=== PATIENT | male | born 1950 | race Caucasian/White ===

== ENCOUNTER → 2024-01-22 10:58 | Outpatient (REF) | payer MEDICARE, SELFPAY ==
[2024-01-22 16:08] LABS: % Basophils 0.7 % (0-2); % Eosinophils 2.2 % (0-6); % Immature Granulocytes 0.8 % (0-0.5); % Lymphocytes 24.7 % (20.5-51.1); % Monocytes 10.9 % (1.7-9.3); % Neutrophils 60.7 % (42.2-75.2); Absolute Basophils 0.1 10^3/uL (0-0.2); Absolute Eosinophils 0.2 10^3/uL (0-0.7); Absolute Immature Granulocytes 0.1 10^3/uL (0-0.05); Absolute Lymphocytes 1.8 10^3/uL (1.2-3.4); Absolute Monocytes 0.8 10^3/uL (0.1-0.6); Absolute Neutrophils 4.4 10^3/uL (1.4-6.5); Hematocrit 40.2 % (39.0-52.0); Hemoglobin 13.3 g/dL (13.0-18.0); Mean Corp Hgb Conc. 33.1 g/dL (33.0-37.0); Mean Corpuscular Hgb 29.5 pg (27.0-31.0); Mean Corpuscular Volume 89.1 fL (80.0-94.0); Mean Platelet Volume 9.7 fL (7.4-10.4); Nucleated Red Blood Cells % 0 % (-); Platelet Count 237 10^3/uL (130-400); Red Blood Cell Count 4.51 10^6/uL (4.70-6.10); Red Cell Dist. Width 13.2 % (11.5-14.5); White Blood Cell Count 7.3 10^3/uL (4.8-10.8)
[2024-01-22 16:37] LABS: ALT (SGPT) 17 U/L (0-50); AST (SGOT) 24 U/L (17-59); Albumin 4.2 g/dl (3.5-5.0); Alkaline Phosphatase 52 U/L (38-126); Blood Urea Nitrogen 30 mg/dl (9-20); Calcium 10.5 mg/dl (8.4-10.2); Carbon Dioxide 20 mmol/L (22-30); Chloride 110 mmol/L (98-107); Glucose 96 mg/dl (70-99); Potassium 4.7 mmol/L (3.5-5.1); Sodium 142 mmol/L (135-145); Total Bilirubin 0.5 mg/dl (0.2-1.3); Total Protein 6.6 g/dl (6.3-8.2); eGFR 44.38
[2024-01-22 17:03] LABS: TSH 2.06 uIU/ml (0.47-4.68)
[2024-01-24 19:09] LABS: Endomysial IgA Antibody Titer <1:10 (<1:10)
== END ==
LOC: HWLAB 10:58
PROVIDERS: ATTENDING PHYSICIAN Nurse Practitioner
DX: R53.83 Other fatigue (principal); K59.09 Other constipation
CPT/HCPCS: 36415; 80053; 82784; 83516; 84443; 85025; 86231

== ENCOUNTER → 2024-01-27 07:36 | Outpatient (REF) | payer MEDICARE, SELFPAY | LOC: HWRAD 07:36 | PROVIDERS: ATTENDING PHYSICIAN Nurse Practitioner | DX: R06.02 Shortness of breath (principal); R10.32 Left lower quadrant pain; Z87.19 Personal history of other diseases of the digestive system | CPT/HCPCS: 74177; Q9967 ==

== ENCOUNTER → 2024-02-12 06:33 | Outpatient (REF) | payer MEDICARE, SELFPAY ==
[2024-02-12 11:15] LABS: ALT (SGPT) 19 U/L (0-50); AST (SGOT) 27 U/L (17-59); Albumin 4.9 g/dl (3.5-5.0); Alkaline Phosphatase 54 U/L (38-126); Blood Urea Nitrogen 27 mg/dl (9-20); Calcium 10.6 mg/dl (8.4-10.2); Carbon Dioxide 24 mmol/L (22-30); Chloride 107 mmol/L (98-107); Glucose 95 mg/dl (70-99); HDL Cholesterol 49 mg/dl; LDL Cholesterol, Calculated 107 mg/dl; Sodium 143 mmol/L (135-145); Total Bilirubin 0.4 mg/dl (0.2-1.3); Total Cholesterol 180 mg/dl (50-199); Total Protein 7.3 g/dl (6.3-8.2); Triglyceride 120 mg/dl (10-149); Very Low Density Lipoprotein 24 mg/dl (0-30); eGFR 38.53
[2024-02-12 15:46] LABS: HIV Combo Negative (Negative)
[2024-02-14 09:07] LABS: Intact PTH 9.7 pg/ml (13.6-85.8)
[2024-02-15 00:05] LABS: Lead - Venous <2.0 ug/dL (<=4.9)
== END ==
LOC: MRI 3T 06:33
PROVIDERS: ATTENDING PHYSICIAN Physician Assistant Surgical; PRIMARYCARE PHYSICIAN Nurse Practitioner
DX: M54.12 Radiculopathy, cervical region (principal); Z00.00 Encounter for general adult medical examination without abnormal findings; N40.0 Benign prostatic hyperplasia without lower urinary tract symptoms; E78.5 Hyperlipidemia, unspecified; Z11.3 Encounter for screening for infections with a predominantly sexual mode of transmission; R10.32 Left lower quadrant pain
CPT/HCPCS: 36415; 72141; 80053; 80061; 83655; 83970; 87389; G0103

== ENCOUNTER → 2024-03-18 12:00 | Outpatient (REF) | payer MEDICARE, SELFPAY | LOC: DHSLP 12:00 | PROVIDERS: ATTENDING PHYSICIAN Internal Medicine; FAMILY PHYSICIAN Nurse Practitioner | DX: G47.33 Obstructive sleep apnea (adult) (pediatric) (principal) | CPT/HCPCS: 95806 ==

== ENCOUNTER → 2024-04-13 09:30 | Outpatient (REF) | payer MEDICARE, SELFPAY ==
[2024-04-13 12:18] LABS: % Basophils 0.8 % (0-2); % Eosinophils 1.7 % (0-6); % Immature Granulocytes 0.7 % (0-0.5); % Lymphocytes 24.2 % (20.5-51.1); % Monocytes 10.3 % (1.7-9.3); % Neutrophils 62.3 % (42.2-75.2); Absolute Basophils 0.1 10^3/uL (0-0.2); Absolute Eosinophils 0.1 10^3/uL (0-0.7); Absolute Immature Granulocytes 0.1 10^3/uL (0-0.05); Absolute Lymphocytes 1.7 10^3/uL (1.2-3.4); Absolute Monocytes 0.7 10^3/uL (0.1-0.6); Absolute Neutrophils 4.5 10^3/uL (1.4-6.5); Hematocrit 40.7 % (39.0-52.0); Hemoglobin 14.1 g/dL (13.0-18.0); Mean Corp Hgb Conc. 34.6 g/dL (33.0-37.0); Mean Corpuscular Hgb 30.3 pg (27.0-31.0); Mean Corpuscular Volume 87.5 fL (80.0-94.0); Mean Platelet Volume 9.7 fL (7.4-10.4); Nucleated Red Blood Cells % 0 % (-); Platelet Count 235 10^3/uL (130-400); Red Blood Cell Count 4.65 10^6/uL (4.70-6.10); White Blood Cell Count 7.2 10^3/uL (4.8-10.8)
[2024-04-13 14:51] LABS: Blood Urea Nitrogen 32 mg/dl (9-20); Calcium 10.2 mg/dl (8.4-10.2); Carbon Dioxide 24 mmol/L (22-30); Chloride 106 mmol/L (98-107); Glucose 109 mg/dl (70-99); Potassium 4.7 mmol/L (3.5-5.1); Sodium 138 mmol/L (135-145); eGFR 44.38
== END ==
LOC: HWLAB 09:30
PROVIDERS: ATTENDING PHYSICIAN Orthopaedic Surgery Orthopaedic Surgery of the Spine; FAMILY PHYSICIAN Nurse Practitioner
DX: M54.12 Radiculopathy, cervical region (principal); Z01.818 Encounter for other preprocedural examination
CPT/HCPCS: 36415; 80048; 85025; 93005

== ENCOUNTER 2024-05-05 06:23 | Inpatient (IN) | payer MEDICARE, SELFPAY ==
[2024-04-22 09:01] VITALS: BMI 37.7
[2024-04-22 11:21] LABS: ALT (SGPT) 20 U/L (0-50); AST (SGOT) 27 U/L (17-59); Albumin 4.5 g/dl (3.5-5.0); Alkaline Phosphatase 55 U/L (38-126); Blood Urea Nitrogen 21 mg/dl (9-20); Calcium 10.1 mg/dl (8.4-10.2); Carbon Dioxide 25 mmol/L (22-30); Chloride 105 mmol/L (98-107); Estimated Creatinine Clearance 51 ml/min; Glucose 96 mg/dl (70-99); Potassium 4.5 mmol/L (3.5-5.1); Sodium 138 mmol/L (135-145); Total Bilirubin 0.6 mg/dl (0.2-1.3); Total Protein 6.6 g/dl (6.3-8.2); eGFR 47.95
[2024-04-28 16:37] VITALS: BMI 37.7
[2024-05-05] VITALS (17 sets, daily range): BP systolic 130–168; BP diastolic 54–89; PULSE 92; O2SAT 97; BMI 39.6
[2024-05-05] MEDS: TYLENOL 1000 MG PO ×3 (07:23→17:57)
[2024-05-05] MEDS: SKELAXIN 800 MG PO (07:23)
[2024-05-05] MEDS: NORMOSOL-R/PLASMALYTE-A 1000 IV ×3 (07:24→22:23)
[2024-05-05] MEDS: CELEBREX 200 MG PO (07:24)
[2024-05-05] MEDS: DILAUDID 0.5 MG IV ×5 (10:33→12:50)
--- NOTE | 2024-05-05 11:09 | W.DS.TRANS ---
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
-
Discharge Instructions:
Discharge Diagnosis/Procedures C3-4-5-[address] Dumont 05/05/24
Diet As tolerated
Activity No strenuous activity
Additional Activity do not sit for prolonged period, frequent
ambulation w/ supervision
Driving Restrictions No driving
Instructions:
Stand-Alone Forms: Dumont Cervical D/C Inst.
Changes to Home Medications: Yes
Discharge Medications:
DC Medications w/original date entered in [facility]
budesonide-formoterol HFA 80 mcg-4.5 mcg/actuation aerosol inhaler (Symbicort) 2 puff inhalation R BID 09/29/19
fenofibrate nanocrystallized 145 mg tablet 145 mg PO DAILY 09/29/19
gabapentin 600 mg tablet 600 mg PO TID 09/29/19
amlodipine 5 mg tablet 5 mg PO HS 07/18/21
calcium polycarbophil 625 mg tablet (Fiber-Tabs) 1,250 mg PO DAILY 07/18/21
pravastatin 40 mg tablet 40 mg PO DAILY 07/18/21
tamsulosin 0.4 mg capsule 0.8 mg PO DAILY 07/18/21
albuterol sulfate 90 mcg/actuation aerosol inhaler 2 puff inhalation Q6H PRN SOB 04/28/24
multivitamin 1 tab PO DAILY 04/28/24
Saccharomyces boulardii 250 mg capsule (Florastor) 250 mg PO BID #1 cap 05/05/24
acetaminophen 650 mg tablet,extended release 650 - 1,300 mg (1 - 2 x 650 mg) PO QID #0 tabs 05/05/24
aspirin 81 mg tablet,delayed release (Adult Low Dose Aspirin) 81 mg PO BID Blood clot prevention/tx #1 tab 05/05/24
cephalexin 500 mg capsule 500 mg PO QID infection prevention #20 caps 05/05/24
dexamethasone 4 mg tablet 4 mg PO BID inflammation #6 tabs 05/05/24
docusate sodium 100 mg capsule 100 mg PO BID #0 caps 08/28/24
famotidine 20 mg tablet 20 mg PO HS GI prophylaxis #30 tabs 05/05/24
magnesium hydroxide 400 mg/5 mL oral suspension (Milk of Magnesia) 30 ml PO HS PRN Constipation #1 mL 05/05/24
ondansetron 4 mg disintegrating tablet 4 mg PO Q6H PRN n/v #20 tabs 05/05/24
oxycodone 5 mg tablet 5 mg PO Q4H PRN moderate-severe pain #20 tabs 05/05/24
sennosides 8.6 mg tablet (Senokot) 17.2 mg (2 x 8.6 mg) PO BID laxative #2 tabs 05/05/24
Home Medication Changes
aspirin 81 mg tablet,delayed release (Adult Low Dose Aspirin) 81 mg PO BID Blood clot prevention/tx #1 tab 05/05/24�
cephalexin 500 mg capsule 500 mg PO QID� infection prevention #20 caps 05/05/24�
dexamethasone 4 mg tablet 4 mg PO BID inflammation #6 tabs 05/05/24�
docusate sodium 100 mg capsule 100 mg PO BID #0 caps 05/05/24�
famotidine 20 mg tablet 20 mg PO HS GI prophylaxis #30 tabs 05/05/24�
ondansetron 4 mg disintegrating tablet 4 mg PO Q6H PRN n/v #20 tabs 05/05/24�
oxycodone 5 mg tablet 5 mg PO Q4H PRN moderate-severe pain #20 tabs 05/05/24�
Pending Results: No
[2024-05-05] MEDS: ULTRAM 50 MG PO ×2 (11:21→22:23)
[2024-05-05] MEDS: LYRICA 75 MG PO (11:21)
--- NOTE | 2024-05-05 14:40 | PTCARENOTE ---
Patient admitted from [facility] post cervical discectomy with fusion and hardware.The patient reports his pain at a 5 out of 10.He did just receive Dilaudid in [facility] right before he came to our floor.The anterior neck dressing is dry and
intact.Neurovascular assessment is within normal limits and ongoing.The patient is in his bed with the call fuentes in reach.His family is at the bedside.
[2024-05-05] MEDS: PRAVACHOL PO (16:33)
[2024-05-05] MEDS: TRICOR 48 MG PO (16:33)
[2024-05-05] MEDS: TYLENOL PO (16:34)
[2024-05-05] MEDS: FLOMAX PO (16:34)
[2024-05-05] MEDS: LYRICA PO (16:34)
[2024-05-05] MEDS: ANCEF 5 IV (16:41)
[2024-05-05] MEDS: SYMBICORT 80/4.5 MCG INHALER 2 PUFF INH (19:27)
[2024-05-05] MEDS: ROXICODONE 5 MG PO (20:17)
[2024-05-05] MEDS: COLACE 100 MG PO (20:17)
[2024-05-05] MEDS: SENOKOT 17.2 MG PO (20:17)
[2024-05-06] MEDS: TYLENOL 1000 MG PO ×3 (00:16→12:05)
[2024-05-06] MEDS: ANCEF 5 IV (00:16)
[2024-05-06] MEDS: LYRICA 75 MG PO (00:17)
--- NOTE | 2024-05-06 02:06 | W.PN.UPDATE ---
Update Note
Progress Note Update
0130 RN reports pt having some short pauses on tele (longest 1.05sec). Pt sleeping and asymptomatic during these pauses.
PT does have hx of MITCH and is due to get his new cpap next week. Declined use of cpap while in hospital.
Pauses likely due to MITCH.
Consider cardiology consult IF longer pauses of becomes symptomatic.
[2024-05-06 03:53] VITALS: BP 143/73
--- NOTE | 2024-05-06 04:21 | PTCARENOTE ---
pt has had several pauses ,00:57 was the longest at 1.05s, bp 151/72 hr 77, pt has been recently diagnosed with mild obstructive sleep apnea and he expresses he is to get a CPAP next week. I asked him if he would like one here he declined. he has
02 at 5-6 lpm and HOB elevated ,he does have hx dx COPD, 02? , he expressed Dr Dumont is aware . pt is asymptomatic and pauses occurring while sleeping, [employer]NA[employer] notified.
[2024-05-06 07:13] LABS: Hematocrit 38.2 % (39.0-52.0); Hemoglobin 13.4 g/dL (13.0-18.0)
[2024-05-06] MEDS: SYMBICORT 80/4.5 MCG INHALER 2 PUFF INH (07:15)
[2024-05-06 07:40] LABS: Blood Urea Nitrogen 26 mg/dl (9-20); Calcium 9.6 mg/dl (8.4-10.2); Carbon Dioxide 25 mmol/L (22-30); Chloride 103 mmol/L (98-107); Estimated Creatinine Clearance 49 ml/min; Glucose 103 mg/dl (70-99); Potassium 4.4 mmol/L (3.5-5.1); Sodium 141 mmol/L (135-145); eGFR 47.95
[2024-05-06 07:51] VITALS: BP 151/65
[2024-05-06] MEDS: SENOKOT 17.2 MG PO (08:43)
[2024-05-06] MEDS: TRICOR 48 MG PO (08:43)
[2024-05-06] MEDS: FLOMAX 0.8 MG PO (08:43)
[2024-05-06] MEDS: PRAVACHOL 40 MG PO (08:43)
[2024-05-06] MEDS: COLACE 100 MG PO (08:44)
--- NOTE | 2024-05-06 11:05 | W.PN.ORTHO ---
Today's Communication / Plan
-
d/c
Assessment
.
Distal Motor Intact: Yes
Dressing:
Clean, dry and intact.
Plan
.
Surgery / Date: C3--[address] Dumont 05/05/24
Activity:
Out of bed.
PT/OT
Discharge Plan: Home
Subjective
.
.:
Patient resting comfortably.
Vital Signs and Labs
.
Vital Signs and Labs:
Lab Results
05/06/24 06:58
05/06/24 06:58
Temp Pulse Resp BP Pulse Ox
97.9 F 68 19 151/65 98
05/06/24 07:51 05/06/24 07:51 05/06/24 07:51 05/06/24 07:51 05/06/24 07:51
Non-invasive Hgb result: 14.2
Physical Exam
-
HEENT: No pallor, cyanosis, or jaundice. Throat clear.
NECK: Supple. No JVD.
RESPIRATORY: Lungs clear to auscultation.
CVS: S1, S2 normal. RRR.� No murmur, rub or gallop.
ABDOMEN: Soft, non-tender. No distension. BS+/normal.
EXTREMITIES: strength equal, no calf pain with palpation
DIVISION DIRECTOR: AOx3. No focal deficits. 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
--- NOTE | 2024-05-06 11:16 | CM ---
Addendum entered by María Elena Brewster 05/06/24 13:14:
PCP: Alma Eden
Pharmacy: [facility] [facility] [address], [place]
Addendum entered by María Elena Brewster 05/06/24 11:24:
IA completed.
Patient lives alone in a 2 story home with 1 step to enter. Will stay on 1st floor as there is a bedroom and bathroom.
Denies any housing/food/utility/transportation insecurities.
Original Note:
Patient seen at bedside. Discharge today
IMM explained & signed. Case management consult completed.
Patient going home states niece is AIRCRAFT DELIVERY CHECKER and his other niece is RN
Stated transporation will be provided by [facility] custodial.
Also states will have [facility] private pay aide to assist at home.
Has med alert with fall detect.
PLAN: Discharge to home, no needs.
[facility] custodial to transport home.
[2024-05-06 11:46] VITALS: BP 141/76; PULSE 73; O2SAT 97
[2024-05-06 11:47] VITALS: BP 141/67
== END 2024-05-06 12:36 | disposition home or self-care (01) | DRG 472 ==
LOC: 2 SOUTH 06:23
PROVIDERS: Physician Assistant Medical; ADMITTING PHYSICIAN Orthopaedic Surgery Orthopaedic Surgery of the Spine; FAMILY PHYSICIAN Nurse Practitioner
PROC: 0RB30ZZ Excision of Cervical Vertebral Disc, Open Approach (ICD-10-PCS; 2024-05-05)
PROC: 0RG20A0 Fusion of 2 or more Cervical Vertebral Joints with Interbody Fusion Device, Anterior Approach, Anterior Column, Open Approach (ICD-10-PCS; 2024-05-05)
DX: M48.02 Spinal stenosis, cervical region (principal); M50.01 Cervical disc disorder with myelopathy, high cervical region; I12.9 Hypertensive chronic kidney disease with stage 1 through stage 4 chronic kidney disease, or unspecified chronic kidney disease; N18.31 Chronic kidney disease, stage 3a; E78.5 Hyperlipidemia, unspecified; N40.0 Benign prostatic hyperplasia without lower urinary tract symptoms; J44.89 Other specified chronic obstructive pulmonary disease; J45.20 Mild intermittent asthma, uncomplicated; G47.33 Obstructive sleep apnea (adult) (pediatric); Z96.651 Presence of right artificial knee joint; Z79.51 Long term (current) use of inhaled steroids; Z79.899 Other long term (current) drug therapy; Z86.718 Personal history of other venous thrombosis and embolism; Z87.891 Personal history of nicotine dependence
CPT/HCPCS: 36415; 72020; 80048; 80053; 85014; 85018; 86850; 86900; 86901; 87070; 94640; 97116; 97162; 97165; 97535

== ENCOUNTER → 2024-08-10 09:13 | Outpatient (REF) | payer MEDICARE, SELFPAY ==
[2024-08-10 12:57] LABS: ALT (SGPT) 20 U/L (0-50); AST (SGOT) 28 U/L (17-59); Albumin 4.7 g/dl (3.5-5.0); Alkaline Phosphatase 53 U/L (38-126); Blood Urea Nitrogen 30 mg/dl (9-20); Calcium 9.7 mg/dl (8.4-10.2); Carbon Dioxide 27 mmol/L (22-30); Chloride 105 mmol/L (98-107); Glucose 105 mg/dl (70-99); Potassium 4.4 mmol/L (3.5-5.1); Sodium 143 mmol/L (135-145); Total Bilirubin 0.5 mg/dl (0.2-1.3); Total Protein 7.1 g/dl (6.3-8.2); eGFR 47.95
[2024-08-10 13:27] LABS: PSA, Total - Screen 2.71 ng/ml (0.0-4.0)
== END ==
LOC: HWLAB 09:13
PROVIDERS: ATTENDING PHYSICIAN Nurse Practitioner
DX: N18.31 Chronic kidney disease, stage 3a (principal)
CPT/HCPCS: 36415; 80053; G0103

== ENCOUNTER → 2024-08-18 06:23 | Day surgery (SDC) | payer MEDICARE, SELFPAY | LOC: GI 06:23 | PROVIDERS: ATTENDING PHYSICIAN Internal Medicine Gastroenterology; FAMILY PHYSICIAN Nurse Practitioner | DX: Z12.11 Encounter for screening for malignant neoplasm of colon (principal); K57.30 Diverticulosis of large intestine without perforation or abscess without bleeding; K64.8 Other hemorrhoids; Z80.0 Family history of malignant neoplasm of digestive organs | CPT/HCPCS: G0105 ==

== ENCOUNTER 2024-11-12 06:15 | Day surgery (SDC) | payer MEDICARE, SELFPAY ==
[2024-10-26 10:52] LABS: Hematocrit 39.7 % (39.0-52.0); Hemoglobin 13.2 g/dL (13.0-18.0); Mean Corp Hgb Conc. 33.2 g/dL (33.0-37.0); Mean Corpuscular Hgb 29.9 pg (27.0-31.0); Mean Platelet Volume 9.3 fL (7.4-10.4); Platelet Count 226 10^3/uL (130-400); Red Blood Cell Count 4.41 10^6/uL (4.70-6.10); Red Cell Dist. Width 13.1 % (11.5-14.5); White Blood Cell Count 6.2 10^3/uL (4.8-10.8)
[2024-10-26 11:21] LABS: ALT (SGPT) 20 U/L (0-50); AST (SGOT) 24 U/L (17-59); Albumin 4.4 g/dl (3.5-5.0); Alkaline Phosphatase 57 U/L (38-126); Blood Urea Nitrogen 27 mg/dl (9-20); Calcium 9.5 mg/dl (8.4-10.2); Carbon Dioxide 25 mmol/L (22-30); Chloride 105 mmol/L (98-107); Glucose 107 mg/dl (70-99); Potassium 4.4 mmol/L (3.5-5.1); Sodium 140 mmol/L (135-145); Total Bilirubin 0.6 mg/dl (0.2-1.3); Total Protein 6.8 g/dl (6.3-8.2); eGFR 44.38
[2024-10-26 14:06] VITALS: BMI 36.7
--- NOTE | 2024-10-29 13:46 | VNURNOTE ---
Patient is scheduled for an elective L TKA on 11/12/24- he is a same day patient with Dr Martel. Spoke with patient prior to surgery. Introduced role of [facility] Liaison. Patient states he will stay overnight. Per chart, ordered extended home PT.
Patient reports that he lives alone in a two story house. He has hired private caregivers w/[facility] at home x 48 hr post op. He has had them in the past and states has neighbors and friends who can assist.
There are 2 steps to enter and a flight of steps to the second floor. He has a first floor set up.
He has a urinal, med alert, quad cane and a rolling walker.
PCP is Asif Mckoy NP.
Discussed [facility] joint protocol and post surgical plans.
Reviewed that he will have [facility], PT services.
Patient selects [facility] for his home care needs and will go to for outpatient PT [facility]. Date TBD, patient thinking in December.
Patient is in agreement with plan. Advised to bring RW with him day of surgery, he wants to use hospital's walker. he stated Care will be able to access his walker when he arrives home (in order to exit car). [facility] referral placed in [facility].
Plan: [facility] per [facility] joint protocol then outpt PT TBD
--- NOTE | 2024-10-29 14:05 | VNURNOTE ---
Patient is scheduled for an elective L TKA on 11/12/24- he is a same day patient with Dr Martel. Spoke with patient prior to surgery. Introduced role of [facility] Liaison. Patient states he will stay overnight. Per chart, ordered extended home PT.
Patient reports that he lives alone in a two story house. He has hired private caregivers w/[facility] at home x 48 hr post op. He has had them in the past and states has neighbors and friends who can assist.
There are 2 steps to enter and a flight of steps to the second floor. He has a first floor set up.
He has a urinal, med alert, quad cane and a rolling walker.
PCP is Asif Mckoy NP.
Discussed [facility] joint protocol and post surgical plans.
Reviewed that he will have [facility], PT services.
Patient selects [facility] for his home care needs and will go to for outpatient [facility]. Date TBD, patient thinking in December.
Patient is in agreement with plan. Advised to bring RW with him day of surgery, he wants to use hospital's walker. he stated Care will be able to access his walker when he arrives home (in order to exit car). [facility] referral placed in [facility].
Plan: Not [facility]. [facility] then outpt PT TBD
[2024-11-05 11:03] VITALS: BMI 36.7
[2024-11-12] VITALS (14 sets, daily range): BP systolic 105–170; BP diastolic 55–93; PULSE 67; O2SAT 95
[2024-11-12] MEDS: CELEBREX 200 MG PO (08:35)
[2024-11-12] MEDS: NORMOSOL-R/PLASMALYTE-A 1000 IV ×2 (08:35→14:21)
[2024-11-12] MEDS: XOPENEX 0.63 MG INHALANT SOLUTION INH ×2 (10:21→18:17)
[2024-11-12] MEDS: DILAUDID 0.5 MG IV ×2 (13:59→14:09)
--- NOTE | 2024-11-12 14:32 | W.PN.UPDATE ---
Update Note
Progress Note Update
L knee OA s/p L TKA w/ Dr Martel 11/12/24
- s/p R TKA, 2019, by Dr. Martel
DVT prophylaxis - Xarelto 10 mg qPM x2 weeks followed by ASA 325 mg daily x2 weeks
Postoperative sepsis secondary to pneumonia 2019 - pt would benefit from Cefadroxil upon d/c
HTN - + parameters - monitor BP
Right femoral nonocclusive thrombus 2020, provoked post-operatively and treated with Xarelto - see above re: OAC
- Plasma flow devices HIGHLY encouraged for outpatient use
Asthma, mild and persistent - monitor O2
- IS
- Continue inhalers
Obstructive sleep apnea, compliant with CPAP (variable setting) - monitor O2
- Resume CPAP HS
Chronic kidney disease stage 3 - minimize NSAIDS
Hiatal hernia - add Pepcid HS
Dysphagia - aspiration precautions
- Tablets should be crushed. Capsules OK per pt
Multilevel degenerative disc disease with radiculopathy - continue Gabapentin
- Consider change to Lyrica to accommodate for post-surgical pain
BPH - monitor voids
- Continue home Flomax
Hyperlipidemia.
Colon polyps
Diverticulosis
Cholelithiasis, asymptomatic
Right renal angiolipoma, 1.1 cm
Spinal stenosis
Anxiety
Obesity, BMI 36.7
History of tobacco abuse
[2024-11-12] MEDS: DILAUDID 4 MG PO ×2 (15:35→22:37)
[2024-11-12] MEDS: TYLENOL PO (15:56)
--- NOTE | 2024-11-12 16:40 | W.PN.UPDATE ---
Update Note
Progress Note Update
Patient doing well postop L TKR. Has been OOB and in the hallway. VSS. Pulm: nonlabored. LLE: Dressing with minimal bloody drainage. Calf soft. Able to fully extend. Postop xrays as expected. Xarelto postop for DVT prophylaxis. Plan for
sdischarge home tomorrow with home PT and [facility].
[2024-11-12] MEDS: PRAVACHOL PO (16:46)
[2024-11-12] MEDS: TRICOR PO (16:46)
--- NOTE | 2024-11-12 17:13 | PTCARENOTE ---
Pt arrived aprox 1500 from [facility] in bed. Pt S/P T LKA- Physical therapy worked with him as soon as he got into room and placed into chair after. Pt with 8/10 pain to left knee. PO dilaudid given. Vitals stable. Pt admission and assessment completed.
Pt to order food. Instructed to ring for assistance.
[2024-11-12] MEDS: SYMBICORT 160/4.5 MCG INHALER 2 PUFF INH (18:17)
[2024-11-12] MEDS: ANCEF 5 IV (18:21)
[2024-11-12] MEDS: XARELTO 10 MG PO (18:22)
[2024-11-12] MEDS: TYLENOL 650 MG PO (20:33)
[2024-11-12] MEDS: SENOKOT 17.2 MG PO (20:34)
[2024-11-12] MEDS: BACTROBAN 2% OINTMENT 1 APPLIC NASAL (20:34)
[2024-11-12] MEDS: DECADRON 4 MG PO (20:34)
[2024-11-12] MEDS: COLACE 100 MG PO (20:34)
[2024-11-12] MEDS: ANESTHETIC LOZENGE 1 LOZENGE PO (20:59)
[2024-11-12] MEDS: NEURONTIN 300 MG PO (21:05)
[2024-11-12] MEDS: NORVASC 5 MG PO (21:05)
[2024-11-12] MEDS: PEPCID 20 MG PO (21:05)
[2024-11-13] MEDS: XOPENEX HFA 45 MCG INHALER 2 PUFF INH (00:12)
[2024-11-13] MEDS: TYLENOL PO (00:55)
[2024-11-13] MEDS: ANCEF 5 IV (01:33)
[2024-11-13 03:08] VITALS: BP 151/75
[2024-11-13] MEDS: TYLENOL 650 MG PO ×2 (03:10→07:39)
[2024-11-13] MEDS: DILAUDID 4 MG PO (06:17)
[2024-11-13] MEDS: COLACE 100 MG PO (07:39)
[2024-11-13] MEDS: SENOKOT 17.2 MG PO (07:39)
[2024-11-13] MEDS: TRICOR 145 MG PO (07:39)
[2024-11-13] MEDS: PRAVACHOL 40 MG PO (07:40)
[2024-11-13] MEDS: BACTROBAN 2% OINTMENT 1 APPLIC NASAL (07:40)
[2024-11-13] MEDS: FLOMAX 0.8 MG PO (07:40)
[2024-11-13] MEDS: DECADRON 4 MG PO (07:40)
[2024-11-13] MEDS: SYMBICORT 160/4.5 MCG INHALER 2 PUFF INH (07:51)
[2024-11-13 08:06] VITALS: BP 131/65
--- NOTE | 2024-11-13 08:28 | W.PN.UPDATE ---
Update Note
Progress Note Update
Mr. Campbell is resting comfortably, sitting up on the side of the bed this morning. He reports that he does have some more pain this morning however he did just take some pain medication.
Directed exam of left knee reveals surgical dressing in place with minimal strikethrough to the center of the bandage. Mild expected edema. ROM decreased. Able to plantarflex/dorsiflex the ankle. Calf soft and nontender. NVI distally
POD#1 left TKA under the direction of Dr. Martel
--WBAT LLE. Ambulate with a walker
--PT/OT
--Continue with pain management as needed. Apply ice as needed
--Xarelto 10mg x2 weeks, then aspirin 325mg x2 weeks for DVT prophylaxis
--Surgical dressing to be removed in 7-10 days, then leave incision open to air
--Case Management consult for discharge planning. Recommended for home health
--He has a rolling walker
--His medications were already sent to the pharmacy
--He will follow up outpatient in two weeks
--Patient is stable for discharge to home today
--- NOTE | 2024-11-13 08:35 | W.DS.TRANS ---
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
-
Discharge Instructions:
Discharge Diagnosis/Procedures L TKA 11/12/24
Diet Chop all food
Activity With Walker
Driving Restrictions No driving
Bathing Restrictions OK to Shower
Other Services PT
Wound Care Remove dressing in 7-10 days, then leave
incision open to air
Instructions:
Stand-Alone Forms: [facility] Total Hip and Knee D/C
Changes to Home Medications: No
Discharge Medications:
DC Medications w/original date entered in [facility]
fenofibrate nanocrystallized 145 mg tablet 145 mg PO DAILY 09/29/19
gabapentin 600 mg tablet 600 mg PO TID Neurological Condition 09/29/19
amlodipine 5 mg tablet 5 mg PO HS Blood Pressure 07/18/21
pravastatin 40 mg tablet 40 mg PO DAILY High Cholesterol 07/18/21
tamsulosin 0.4 mg capsule 0.8 mg PO DAILY Urinary Issue 07/18/21
albuterol sulfate 90 mcg/actuation aerosol inhaler 2 puff inhalation Q6H PRN SOB 04/28/24
multivitamin 1 tab PO DAILY Supplement 04/28/24
acetaminophen 650 mg tablet,extended release 1,300 mg PO TUTH pain 10/25/24
amoxicillin 500 mg tablet 2,000 mg PO PRN PRN dental procedure 10/25/24
budesonide-formoterol HFA 160 mcg-4.5 mcg/actuation aerosol inhaler (Symbicort) 2 puff inhalation BID 10/25/24
tavaborole 5 % topical solution with applicator 1 applic topical DAILY 10/25/24
cefadroxil 500 mg capsule 500 mg PO DAILY #7 caps 10/26/24
famotidine 20 mg tablet (Pepcid) 20 mg PO HS #30 tabs 10/26/24
hydromorphone 2 mg tablet 2 - 4 mg (1 - 2 x 2 mg) PO Q6H PRN moderate-severe pain #30 tabs 10/26/24
mupirocin 2 % topical ointment 1 applic intranasal BID #1 tube 10/26/24
ondansetron HCl 4 mg tablet 4 mg PO Q6H PRN nausea and vomiting #30 tabs 10/26/24
prednisone 10 mg tablet 40 mg (4 x 10 mg) PO TAPER Anti-inflammatory #20 tabs 10/26/24
rivaroxaban 10 mg tablet (Xarelto) 10 mg PO QPM #14 tabs 10/29/24
docusate sodium 100 mg capsule 100 mg PO BID #0 caps 11/13/24
sennosides 8.6 mg tablet (Blanche-norma) 17.2 mg (2 x 8.6 mg) PO BID #0 tabs 11/13/24
Home Medication Changes
Pending Results: No
--- NOTE | 2024-11-13 08:36 | W.DCSUMMARY ---
Discharge Summary
Discharge Data
Date of Admission: 11/12/24
Date of Discharge: 11/13/24
-
Pending Results: No
Hospital Course
74 year old male admitted to [facility] following left total knee arthroplasty on 11/12/24 under the direction of Dr. Martel. His pain was controlled and his medical status was monitored. He was able to work with physical therapy. He was
recommended for discharge to home with home health. Case managemnet was consulted for discharge planning. He is to be weight bearing as tolerated to the left leg. He is to ambulate with a rolling walker. He will take Xarelto for prevention of blood
clots. He will follow up outpatient in two weeks. He was deemed medically stable for discharge.
Discharge Plan
-
Patient Disposition: Home (Routine Discharge)
Discharge Diagnosis/Procedures: L TKA 11/12/24
Condition: Good
Diet: Chop all food
Activity: With Walker
Driving Restrictions: No driving
Bathing Restrictions: OK to Shower
Other Services: PT
Wound Care: Remove dressing in 7-10 days, then leave incision open to air
Stand Alone Forms: [facility] Total Hip and Knee D/C
Referrals:
Sukhdeep Martel MD [Active] -
Alma Mckoy CRNP [Family Provider] -
Prescriptions:
New
hydromorphone 2 mg tablet
2 - 4 mg PO Q6H PRN (Reason: moderate-severe pain) Qty: 30 0RF
Rx Instructions:
1 tab for moderate pain, 2 if severe
Dx total joint
prednisone 10 mg tablet
40 mg PO TAPER Qty: 20 0RF
Rx Instructions:
4 TABS X 2 DAYS, 3 TABS X 2 DAYS, 2 TABS X 2 DAYS, 1 TAB X 2 DAYS, THEN STOP
ondansetron HCl 4 mg tablet
4 mg PO Q6H PRN (Reason: nausea and vomiting) Qty: 30 0RF
famotidine [Pepcid] 20 mg tablet
20 mg PO HS Qty: 30 0RF
Rx Instructions:
Take nightly while on post-op pain meds to prevent GI upset.
cefadroxil 500 mg capsule
500 mg PO DAILY Qty: 7 0RF
Rx Instructions:
Start the day after discharge and continue daily until finished.
Take daily probiotic while on this.
mupirocin 2 % ointment
1 applic intranasal BID Qty: 1 0RF
Patient Comments:
applied this am ,started friday
Xarelto 10 mg tablet
10 mg PO QPM Qty: 14 0RF
Rx Instructions:
Start night of discharge. Continue nightly for 2 weeks.
Once finished, start full dose Aspirin daily x2 weeks
docusate sodium 100 mg Capsule
100 mg PO BID Qty: 0 0RF
sennosides [Blanche-norma] 8.6 mg Tablet
17.2 mg PO BID Qty: 0 0RF
Continued
gabapentin 600 MG tablet
600 mg PO TID
fenofibrate nanocrystallized 145 MG tablet
145 mg PO DAILY
pravastatin 40 MG tablet
40 mg PO DAILY
amlodipine 5 MG tablet
5 mg PO HS
tamsulosin 0.4 MG capsule
0.8 mg PO DAILY
multivitamin Tablet
1 tab PO DAILY
albuterol sulfate 90 mcg/actuation Hfa Aerosol Inhaler
2 puff INHALATION Q6H PRN (Reason: SOB)
amoxicillin 500 mg Tablet
2,000 mg PO PRN PRN (Reason: dental procedure)
budesonide-formoterol [Symbicort] 160-4.5 mcg/actuation Hfa Aerosol Inhaler
2 puff INHALATION BID
tavaborole 5 % Solution With Applicator
1 applic TOPICAL DAILY
acetaminophen 650 mg tablet extended release
1,300 mg PO TUTH
Discharge Orders:
Discharge Patient (As Directed); Ordered 11/13/24
Ordered By: Kierra Malave
Discharge Date and Time
Print Language: PORTUGUESE
[2024-11-13 09:56] VITALS: BP 138/72
[2024-11-13] MEDS: DILAUDID 0.5 MG IV (10:00)
--- NOTE | 2024-11-13 10:39 | CM ---
Patient seen at bedside
IA Completed
CM consult completed
Lives alone in 2 story home 1st floor set up
Has arranged caregivers from [facility] to stay over weekend
PT/OT rec HH
Referral in [facility] - accepted
no IMM - outpatient
PCP: Alma Mckoy
Pharmacy: [facility] [place] [facility]
PLAN: Home with [facility]
caregiver to transport
[2024-11-13 11:19] VITALS: BP 157/76
[2024-11-13] MEDS: XOPENEX 0.63 MG INHALANT SOLUTION INH (11:44)
== END 2024-11-13 11:50 | disposition home or self-care (01) ==
LOC: SDS 06:15
PROVIDERS: ATTENDING PHYSICIAN Orthopaedic Surgery; FAMILY PHYSICIAN Nurse Practitioner
DX: M17.12 Unilateral primary osteoarthritis, left knee (principal)
CPT/HCPCS: 27447; 36415; 73560; 80053; 83036; 85027; 87070; 93005; 94640; 97110; 97116; 97162; 97166; 97535; C1713; C1776

== ENCOUNTER → 2025-02-22 11:15 | Outpatient (REF) | payer MEDICARE, SELFPAY ==
[2025-02-22 15:26] LABS: ALT (SGPT) 16 U/L (0-50); AST (SGOT) 22 U/L (17-59); Albumin 4.3 g/dl (3.5-5.0); Alkaline Phosphatase 53 U/L (38-126); Blood Urea Nitrogen 20 mg/dl (9-20); Calcium 10.5 mg/dl (8.4-10.2); Carbon Dioxide 24 mmol/L (22-30); Chloride 109 mmol/L (98-107); Glucose 100 mg/dl (70-99); HDL Cholesterol 46 mg/dl; LDL Cholesterol, Calculated 77 mg/dl; Potassium 4.5 mmol/L (3.5-5.1); Sodium 141 mmol/L (135-145); Total Bilirubin 0.6 mg/dl (0.2-1.3); Total Cholesterol 143 mg/dl (50-199); Total Protein 6.9 g/dl (6.3-8.2); Triglyceride 101 mg/dl (10-149); Very Low Density Lipoprotein 20 mg/dl (0-30)
[2025-02-22 15:43] LABS: % Basophils 0.6 % (0-2); % Eosinophils 1.5 % (0-6); % Immature Granulocytes 0.5 % (0-0.5); % Monocytes 8.1 % (1.7-9.3); % Neutrophils 70.3 % (42.2-75.2); Absolute Basophils 0.1 10^3/uL (0-0.2); Absolute Eosinophils 0.1 10^3/uL (0-0.7); Absolute Lymphocytes 1.7 10^3/uL (1.2-3.4); Absolute Monocytes 0.7 10^3/uL (0.1-0.6); Absolute Neutrophils 6.1 10^3/uL (1.4-6.5); Hematocrit 36.9 % (39.0-52.0); Hemoglobin 12.1 g/dL (13.0-18.0); Mean Corp Hgb Conc. 32.8 g/dL (33.0-37.0); Mean Corpuscular Volume 85.4 fL (80.0-94.0); Mean Platelet Volume 9.7 fL (7.4-10.4); Nucleated Red Blood Cells % 0 % (-); Platelet Count 263 10^3/uL (130-400); Red Blood Cell Count 4.32 10^6/uL (4.70-6.10); Red Cell Dist. Width 14.3 % (11.5-14.5); White Blood Cell Count 8.7 10^3/uL (4.8-10.8)
[2025-02-22 16:06] LABS: HIV Combo Negative (Negative)
== END ==
LOC: HWLAB 11:15
PROVIDERS: ATTENDING PHYSICIAN Nurse Practitioner
DX: Z00.00 Encounter for general adult medical examination without abnormal findings (principal); Z11.3 Encounter for screening for infections with a predominantly sexual mode of transmission; N40.0 Benign prostatic hyperplasia without lower urinary tract symptoms
CPT/HCPCS: 36415; 80053; 80061; 84153; 85025; 87389

== ENCOUNTER → 2025-03-02 11:03 | Outpatient (REF) | payer MEDICARE, SELFPAY | LOC: HWRAD 11:03 | PROVIDERS: ATTENDING PHYSICIAN Physician Assistant Surgical; FAMILY PHYSICIAN Nurse Practitioner | DX: M54.16 Radiculopathy, lumbar region (principal) | CPT/HCPCS: 72110 ==

== ENCOUNTER → 2025-03-15 07:41 | Outpatient (REF) | payer MEDICARE, SELFPAY | LOC: RAD 07:41 | PROVIDERS: ATTENDING PHYSICIAN Podiatrist; FAMILY PHYSICIAN Nurse Practitioner | DX: I70.219 Atherosclerosis of native arteries of extremities with intermittent claudication, unspecified extremity (principal) | CPT/HCPCS: 93922 ==

== ENCOUNTER → 2025-06-29 20:11 | Outpatient (REF) | payer MEDICARE, SELFPAY | LOC: MRI 3T 20:11 | PROVIDERS: ATTENDING PHYSICIAN Physician Assistant Surgical; FAMILY PHYSICIAN Nurse Practitioner | DX: M54.16 Radiculopathy, lumbar region (principal); M54.50 Low back pain, unspecified | CPT/HCPCS: 72158; A9575 ==

== ENCOUNTER → 2025-06-30 17:14 | Outpatient (REF) | payer MEDICARE, SELFPAY | LOC: RAD 17:14 | PROVIDERS: ATTENDING PHYSICIAN Student in an Organized Health Care Education/Training Program; FAMILY PHYSICIAN Nurse Practitioner | DX: R06.02 Shortness of breath (principal) | CPT/HCPCS: 71046 ==

== ENCOUNTER → 2025-07-18 14:32 | Outpatient (REF) | payer MEDICARE, SELFPAY | LOC: HWRCS 14:32 | PROVIDERS: ATTENDING PHYSICIAN Student in an Organized Health Care Education/Training Program | DX: R06.02 Shortness of breath (principal); R60.0 Localized edema | CPT/HCPCS: 93306 ==

== ENCOUNTER 2025-07-25 07:21 | Day surgery (SDC) | payer MEDICARE, SELFPAY ==
[2025-07-25] VITALS (16 sets, daily range): BP systolic 103–155; BP diastolic 63–88; BMI 41.3
[2025-07-25] MEDS: LOW STRENGTH ASPIRIN 81 MG PO (08:30)
[2025-07-25 08:32] LABS: Hematocrit 40.8 % (39.0-52.0); Hemoglobin 13.8 g/dL (13.0-18.0); Mean Corp Hgb Conc. 33.8 g/dL (33.0-37.0); Mean Corpuscular Volume 88.9 fL (80.0-94.0); Platelet Count 244 10^3/uL (130-400); Red Cell Dist. Width 13.4 % (11.5-14.5)
[2025-07-25] MEDS: NSS 348 ML IV (08:35)
[2025-07-25 09:12] LABS: ALT (SGPT) 20 U/L (0-50); AST (SGOT) 19 U/L (17-59); Albumin 4.3 g/dl (3.5-5.0); Alkaline Phosphatase 45 U/L (38-126); Blood Urea Nitrogen 32 mg/dl (9-20); Calcium 9.7 mg/dl (8.4-10.2); Carbon Dioxide 27 mmol/L (22-30); Chloride 106 mmol/L (98-107); Estimated Creatinine Clearance 46 ml/min; Glucose 91 mg/dl (70-99); Potassium 4.6 mmol/L (3.5-5.1); Sodium 136 mmol/L (135-145); Total Protein 6.7 g/dl (6.3-8.2); eGFR 44.10
--- NOTE | 2025-07-25 10:43 | ITS.CL.CATH ---
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
Cardiac Catheterization
Procedure Report:
LEFT HEART CATH AND CORONARY INTERVENTION
Date of Procedure: July 25, 2025
Referring: Dr. Anjel Bennett
PROCEDURES:
1. Coronary angiography
2. Successful stenting of the proximal right coronary artery with a 4.0 x 18 mm Matthew stent that was implanted at nominal pressures and postdilated with a 4.0 mm noncompliant balloon to 22 dino in the proximal and midportion of the stent and 14 dino
distally
3. Intravascular ultrasound
INDICATION: This is a 75-year-old gentleman with mild aortic stenosis who presented for evaluation of exertional dyspnea and chest discomfort over the past 4 months. His symptoms have been somewhat progressive. He was seen by Dr. Bennett and was
scheduled for coronary angiography.
ACCESS: Right radial artery, 6 Ugandan sheath using ultrasound guidance
HEMODYNAMICS (mmHg):
AO (s/d, m) : 116/65
CORONARY FINDINGS
Dominance: Right
LEFT MAIN: Normal
LEFT ANTERIOR DESCENDING: The LAD arises normally from the left main and runs in the anterior interventricular groove. The LAD has minor irregularities but no focal high-grade obstructive stenosis.
CIRCUMFLEX: The circumflex is a medium caliber nondominant vessel that has minor irregularities over its course
RIGHT CORONARY: The right coronary artery is a dominant vessel with a 95% proximal stenosis just before the origin of an RV marginal branch. The remainder of the RCA has minor irregularities but no focal obstructive stenosis. The PDA has a 60% mid
stenosis
VENTRICULOGRAPHY: Not done
ANGIOPLASTY PROCEDURE DETAIL: Upon review of the diagnostic catheterization the decision was made to proceed with percutaneous revascularization of the high-grade proximal RCA stenosis. A 600 mg loading dose of clopidogrel was administered and
intravenous heparin was given to maintain a therapeutic ACT. The origin of the right coronary artery was cannulated with a 6 Ugandan JR4 guide catheter and a Hi-Torque floppy guidewire was advanced across the proximal RCA stenosis and into the
distal vessel. Balloon predilation was performed using a 2.0 mm Euphora balloon and was followed by placement of a 4.0 x 18 mm [place] stent that was implanted at nominal pressures. The stented segment was evaluated with intravascular ultrasound and
the stent was postdilated to high-pressure's with a 4.0 mm noncompliant balloon at 14 dino distally and 22 dino in the proximal midportion of the stent with a nice angiographic result
SEDATION: 64 minutes of procedural sedation was utilized. An independent medical specialist was present to assist with and help manage the patient's level of consciousness and physiologic status
RADIATION SUMMARY: Fluoro Time (min): 11.1, Dose (mGy): 1074, DAP (Gy.cm2) : 58.5
CONCLUSIONS
1. Successful stenting of high-grade proximal RCA stenosis with placement of a 4.0 x 18 mm Matthew stent that was postdilated with a 4.0 mm noncompliant balloon
2. Moderate coronary disease in the mid PDA with 60% stenosis
3. Nonobstructive coronary disease in the LAD and circumflex
RECOMMENDATIONS
1. Uninterrupted dual antiplatelet therapy for a minimum of 1 year
2. Change pravastatin to 80 mg of atorvastatin for goal LDL cholesterol less than 70 mg/dL preferably closer to 55 mg/dL
3. Home blood pressure monitoring
4. Could consider PCI of mid PDA for recurring angional symptoms refractory to medical therapy
Copy to: Dr. Anjel Bennett
--- NOTE | 2025-07-25 13:53 | W.PN.UPDATE ---
Update Note
Progress Note Update
Pt seen post RCA PCI. Right radial cath site without ht/bleeding, non tender. OOB ambulating. Post EKG NSR 60, no acute changes, no VT/arrhythmia on tele. Pt understands importance of uninterrupted DAPT w/asa, clopidogrel. Will stop pravastatin in
favor of atorvastatin. Cardiac rehab consulted. Followup at [facility] as scheduled. Home today if cath site/tele remain stable.
== END 2025-07-25 15:30 | disposition home or self-care (01) ==
LOC: CATH 07:21
PROVIDERS: ATTENDING PHYSICIAN Internal Medicine Interventional Cardiology; FAMILY PHYSICIAN Family Medicine Sports Medicine; OTHER PHYSICIAN Internal Medicine Cardiovascular Disease
DX: I25.10 Atherosclerotic heart disease of native coronary artery without angina pectoris (principal); R06.09 Other forms of dyspnea; R07.89 Other chest pain; I35.0 Nonrheumatic aortic (valve) stenosis; Z79.02 Long term (current) use of antithrombotics/antiplatelets; Z79.82 Long term (current) use of aspirin; Z79.899 Other long term (current) drug therapy
CPT/HCPCS: 99152; 99153; 92978; 80053; 85027; 85347; 93005; 93454; C1725; C1753; C1769; C1874; C1894; C9600; Q9967

== ENCOUNTER → 2025-08-24 12:41 | Outpatient (REF) | payer MEDICARE, SELFPAY ==
[2025-08-24 13:08] LABS: Hematocrit 40.5 % (39.0-52.0); Hemoglobin 13.2 g/dL (13.0-18.0); Mean Corp Hgb Conc. 32.6 g/dL (33.0-37.0); Mean Corpuscular Volume 89.6 fL (80.0-94.0); Nucleated Red Blood Cells % 0 % (-); Platelet Count 208 10^3/uL (130-400); Red Cell Dist. Width 13.1 % (11.5-14.5)
[2025-08-24 13:51] LABS: ALT (SGPT) 22 U/L (0-50); AST (SGOT) 26 U/L (17-59); Albumin 4.5 g/dl (3.5-5.0); Alkaline Phosphatase 44 U/L (38-126); Blood Urea Nitrogen 30 mg/dl (9-20); Calcium 9.4 mg/dl (8.4-10.2); Carbon Dioxide 26 mmol/L (22-30); Chloride 107 mmol/L (98-107); Glucose 92 mg/dl (70-99); HDL Cholesterol 45 mg/dl; LDL Cholesterol, Calculated 78 mg/dl; Potassium 4.7 mmol/L (3.5-5.1); Sodium 138 mmol/L (135-145); Total Protein 6.9 g/dl (6.3-8.2); Very Low Density Lipoprotein 21 mg/dl (0-30); eGFR 41.01
== END ==
LOC: REG 12:41
PROVIDERS: ATTENDING PHYSICIAN Nurse Practitioner
DX: Z00.00 Encounter for general adult medical examination without abnormal findings (principal); E78.5 Hyperlipidemia, unspecified
CPT/HCPCS: 36415; 80053; 80061; 85025; G0422; G0423

== ENCOUNTER 2025-09-06 14:00 | Outpatient (RCR) | payer MEDICARE, SELFPAY | END 2025-09-06 23:59 | disposition home or self-care (01) | LOC: CRHB 14:00 | PROVIDERS: ATTENDING PHYSICIAN Internal Medicine Cardiovascular Disease; FAMILY PHYSICIAN Nurse Practitioner | DX: I25.10 Atherosclerotic heart disease of native coronary artery without angina pectoris (principal); Z95.5 Presence of coronary angioplasty implant and graft | CPT/HCPCS: G0422; G0423 ==